=== PATIENT | male | born 1980 | race Caucasian/White ===

== ENCOUNTER 2018-10-05 00:41 | Emergency (ER) | payer MEDICARE, OTHER ==
[~2018-10-05] VITALS: Ht 177.8 cm; Wt 68.0 kg
[2018-10-05] MEDS ORDERED: XARELTO20 MG PO (01:20)
[2018-10-05] MEDS ORDERED: LISI5 PO (01:20)
[2018-10-05] MEDS ORDERED: XARELTO15 MG PO (01:20)
[2018-10-05] MEDS ORDERED: Lisinopril2.5 MG PO (01:21)
[2018-10-05] MEDS ORDERED: FURO20 PO (01:21)
[2018-10-05] MEDS ORDERED: CARV3.125 PO (01:21)
[2018-10-05] MEDS ORDERED: POTA10T PO (01:21)
[2018-10-05] MEDS ORDERED: OXYC10TA19 PO (01:21)
== END 2018-10-05 02:07 | disposition home or self-care (01) ==
LOC: ER 00:41
DX: S00.83XA Contusion of other part of head, initial encounter (principal); W05.0XXA Fall from non-moving wheelchair, initial encounter; Z79.899 Other long term (current) drug therapy; Z79.891 Long term (current) use of opiate analgesic; I48.91 Unspecified atrial fibrillation
CPT/HCPCS: 70450; 99283-25

== ENCOUNTER 2018-12-03 08:36 | Emergency (ER) | payer OTHER ==
[~2018-12-03] VITALS: Ht 177.8 cm; Wt 68.0 kg
[~2018-12-03 08:36] MED LIST: CARV3.125 PO; FURO20 PO; LISI5 PO; Lisinopril2.5 MG PO; OXYC10TA19 PO; POTA10T PO; XARELTO15 MG PO; XARELTO20 MG PO
[2018-12-03] MEDS ORDERED: OXYC10TA19 PO (09:37)
== END 2018-12-03 09:42 | disposition home or self-care (01) ==
LOC: ER 08:36
DX: G89.29 Other chronic pain (principal); M54.9 Dorsalgia, unspecified; I48.91 Unspecified atrial fibrillation; Z76.0 Encounter for issue of repeat prescription
CPT/HCPCS: 99281

== ENCOUNTER 2019-01-19 12:37 | Observation (INO) | payer OTHER ==
[~2019-01-19] VITALS: Ht 177.8 cm; Wt 60.6 kg
[2019-01-19 13:03] LABS: BASOPHILS ABSOLUTE AUTO 0.06 K/mm3 (0.00-0.23); BASOPHILS PERCENT AUTO 1 % (0-2); EOSINOPHILS ABSOLUTE AUTO 0.16 K/mm3 (0.00-0.68); EOSINOPHILS PERCENT AUTO 2 % (0-6); Hematocrit 44.6 % (37.0-53.0); Hemoglobin 15.2 g/dL (13.5-17.5); IMMATURE GRAN ABSOLUTE AUTO 0.02 K/mm3 (0.00-0.10); IMMATURE GRAN PERCENT AUTO 0 % (0-1); LYMPHOCYTES ABSOLUTE AUTO 3.17 K/mm3 (0.84-5.20); LYMPHOCYTES PERCENT AUTO 36 % (21-46); MONOCYTES ABSOLUTE AUTO 0.52 K/mm3 (0.16-1.47); MONOCYTES PERCENT AUTO 6 % (4-13); Mean Corpuscular HGB 31.3 pg (26.0-34.0); Mean Corpuscular HGB Conc 34.1 g/dL (31.5-36.5); Mean Corpuscular Volume 92 fL (80-100); Mean Platelet Volume 12.7 fL (9.1-12.4); NEUTROPHILS PERCENT AUTO 56 % (41-73); Platelet Count 176 K/mm3 (150-400); RDW Coefficient Variation 13.1 % (11.7-14.2); RDW Standard Deviation 44.3 fL (35.1-46.3); Red Blood Cell Count 4.86 M/mm3 (4.30-5.90); White Blood Cell Count 8.83 K/mm3 (4.00-11.30)
[2019-01-19 13:27] LABS: Alanine Aminotransfer (ALT/SGP 47 U/L (12-78); Albumin, Blood 3.9 g/dL (3.4-5.0); Albumin/Globulin Ratio 1.1 (0.8-1.8); Alk Phos 77 U/L (50-136); Anion Gap 6 mmol/L (6-16); Aspartate Aminotrans (AST/SGOT 37 U/L (12-37); Bilirubin, Total 0.9 mg/dL (0.1-1.0); Blood Urea Nitrogen 22 mg/dL (8-24); Bun/Creatinine Ratio 20.6 (12.0-20.0); CO2, Blood 23 mmol/L (21-32); Calcium, Blood 9.3 mg/dL (8.5-10.1); Chloride, Blood 109 mmol/L (98-108); Creatinine, Blood 1.07 mg/dL (0.60-1.20); Globulin, Blood 3.4 g/dL (2.2-4.0); Glomerular Filtration Rate >60 (60-); Glucose, Blood 126 mg/dL (70-99); Potassium, Blood 4.6 mmol/L (3.5-5.5); Sodium, Blood 138 mmol/L (136-145); Total Protein, Blood 7.3 g/dL (6.4-8.2)
[2019-01-19 13:35] LABS: Troponin I 0.495 ng/mL (0.000-0.040)
--- NOTE | 2019-01-19 18:11 | NUR ---
ADMIT: PT ARRIVED TO PCU 6 AT 1635 VIA GURNEY. PT ALERT AND ORIENTED, COMPLAINING OF BACK PAIN. PRN PAIN MEDS GIVEN PER ORDER. PT DENIES ANY CHEST PAIN. ADMIT PAPERWORK COMPLETED. PT ORIENTED TO ROOM, CALL LIGHT AND PLAN OF CARE. CONTINUING TO MONITOR.
[2019-01-20 04:07] LABS: BASOPHILS ABSOLUTE AUTO 0.05 K/mm3 (0.00-0.23); BASOPHILS PERCENT AUTO 1 % (0-2); EOSINOPHILS ABSOLUTE AUTO 0.22 K/mm3 (0.00-0.68); EOSINOPHILS PERCENT AUTO 3 % (0-6); Hematocrit 39.1 % (37.0-53.0); Hemoglobin 13.1 g/dL (13.5-17.5); IMMATURE GRAN ABSOLUTE AUTO 0.01 K/mm3 (0.00-0.10); IMMATURE GRAN PERCENT AUTO 0 % (0-1); LYMPHOCYTES ABSOLUTE AUTO 3.39 K/mm3 (0.84-5.20); LYMPHOCYTES PERCENT AUTO 41 % (21-46); MONOCYTES ABSOLUTE AUTO 0.68 K/mm3 (0.16-1.47); MONOCYTES PERCENT AUTO 8 % (4-13); Mean Corpuscular HGB 30.5 pg (26.0-34.0); Mean Corpuscular HGB Conc 33.5 g/dL (31.5-36.5); Mean Corpuscular Volume 91 fL (80-100); Mean Platelet Volume 12.9 fL (9.1-12.4); NEUTROPHILS ABSOLUTE AUTO 4.03 K/mm3 (1.96-9.15); NEUTROPHILS PERCENT AUTO 48 % (41-73); Platelet Count 153 K/mm3 (150-400); RDW Coefficient Variation 13.3 % (11.7-14.2); RDW Standard Deviation 44.8 fL (35.1-46.3); Red Blood Cell Count 4.29 M/mm3 (4.30-5.90); White Blood Cell Count 8.38 K/mm3 (4.00-11.30)
[2019-01-20 04:29] LABS: Alanine Aminotransfer (ALT/SGP 38 U/L (12-78); Albumin, Blood 3.3 g/dL (3.4-5.0); Albumin/Globulin Ratio 1.2 (0.8-1.8); Alk Phos 68 U/L (50-136); Anion Gap 8 mmol/L (6-16); Aspartate Aminotrans (AST/SGOT 21 U/L (12-37); Bilirubin, Total 0.6 mg/dL (0.1-1.0); Blood Urea Nitrogen 28 mg/dL (8-24); Bun/Creatinine Ratio 22.2 (12.0-20.0); CHOL/HDL RATIO 5.5; CO2, Blood 26 mmol/L (21-32); Chloride, Blood 107 mmol/L (98-108); Cholesterol 192 mg/dL (50-200); Creatinine, Blood 1.26 mg/dL (0.60-1.20); Globulin, Blood 2.8 g/dL (2.2-4.0); Glomerular Filtration Rate >60 (60-); Glucose, Blood 81 mg/dL (70-99); HDL Cholesterol 35 mg/dL (>39); LDL/HDL RATIO 3.8; Low Density Lipoprotein Chol 134 mg/dL (0-110); Potassium, Blood 3.8 mmol/L (3.5-5.5); Sodium, Blood 141 mmol/L (136-145); Total Protein, Blood 6.1 g/dL (6.4-8.2); Triglycerides 113 mg/dL (30-140); Troponin I 0.479 ng/mL (0.000-0.040); Very Low Density Lipoprot Chol 22 mg/dL (6-28)
--- NOTE | 2019-01-20 05:44 | NUR ---
SHIFT SUMMARY PT SLEEPING IN ROOM COMFORTABLY AT THIS TIME. NO ACUTE CHANGES IN STATSU T.O NIGHT. PT SLEPT WELL IN PERIODS. DENIED ANY CP OR SOB T/O NIGHT. RESP EVEN UNLBAORED ON RA W/ SATS >92%. PT BLE ELEVATED T/O NIGHT FOR EDEMA. PT C/O PAIN ONCE AND WAS MEDICATED PER EMAR. DENIED OTHER NEEDS. PT REMAINED ON BEDREST, AND USED URINAL IN BED W/O ASSIST. CALL LIGHT IN REACH. PT CALLS APPROPRIATELY.
--- NOTE | 2019-01-20 07:00 | NUR ---
recvd report from previous shift RN, pt sitting up in bed, a/0 x 4, pleasant/cooperative. call light within reach, bed rails up x 2, bed in lowest position. dr boucher in with pt
--- NOTE | 2019-01-20 08:55 | NUR ---
care management rounded on pt
--- NOTE | 2019-01-20 09:09 | NUR ---
dr bennett rounded on pt
--- NOTE | 2019-01-20 11:25 | NUR ---
Spiritual care visit conducted. Patient is lying in bed and alert. Patient openly shares about his life including his 20 years of being in a wheel chair, his thoughts on druze (Faith/Judaism blend), and his ideas of what inspires him (family, friends and fishing). Patient has an upbeat disposition and is mindful of others. I reinforce helpful attitudes and practices, encourage self-care, explore spiritual beliefs and provide companionship and prayer. Patient responds well and voices appreciation for the visit.
--- NOTE | 2019-01-20 12:45 | NUR ---
provided pt with discharge instructions and referral for cardiac rehab and followup with Dr Sheehan at [facility] for further care per MD orders and pt's preference. peripheral IV removed WNL. pt and his belongins transported to awaiting vehicle via wheelchair
== END 2019-01-20 13:30 | disposition home or self-care (01) ==
LOC: ER 12:37 → PCU 12:38
PROVIDERS: Emergency Medicine; Nurse Practitioner Acute Care; ADMIT Internal Medicine
DX: R07.89 Other chest pain (principal); I11.0 Hypertensive heart disease with heart failure; I50.23 Acute on chronic systolic (congestive) heart failure; R79.89 Other specified abnormal findings of blood chemistry; I21.A9 Other myocardial infarction type; I48.0 Paroxysmal atrial fibrillation; I34.0 Nonrheumatic mitral (valve) insufficiency; I27.20 Pulmonary hypertension, unspecified; R94.31 Abnormal electrocardiogram [ECG] [EKG]; G11.1 Early-onset cerebellar ataxia; Z87.891 Personal history of nicotine dependence; Z79.899 Other long term (current) drug therapy; N28.9 Disorder of kidney and ureter, unspecified
CPT/HCPCS: 36415; 71045; 80053; 80061; 83735; 84484; 85025; 93005; 93010; 99285-25; C8923; J1940; Q9957

== ENCOUNTER 2019-01-30 10:29 | Emergency (ER) | payer OTHER ==
[~2019-01-30] VITALS: Ht 177.8 cm; Wt 68.0 kg
[2019-01-30 11:38] LABS: BASOPHILS ABSOLUTE AUTO 0.07 K/mm3 (0.00-0.23); BASOPHILS PERCENT AUTO 1 % (0-2); EOSINOPHILS ABSOLUTE AUTO 0.12 K/mm3 (0.00-0.68); EOSINOPHILS PERCENT AUTO 1 % (0-6); Hematocrit 44.2 % (37.0-53.0); Hemoglobin 14.9 g/dL (13.5-17.5); IMMATURE GRAN ABSOLUTE AUTO 0.04 K/mm3 (0.00-0.10); IMMATURE GRAN PERCENT AUTO 0 % (0-1); LYMPHOCYTES PERCENT AUTO 23 % (21-46); MONOCYTES ABSOLUTE AUTO 0.74 K/mm3 (0.16-1.47); MONOCYTES PERCENT AUTO 7 % (4-13); Mean Corpuscular HGB 30.8 pg (26.0-34.0); Mean Corpuscular HGB Conc 33.7 g/dL (31.5-36.5); Mean Corpuscular Volume 91 fL (80-100); Mean Platelet Volume 12.9 fL (9.1-12.4); NEUTROPHILS ABSOLUTE AUTO 7.27 K/mm3 (1.96-9.15); NEUTROPHILS PERCENT AUTO 68 % (41-73); Platelet Count 175 K/mm3 (150-400); RDW Coefficient Variation 13.2 % (11.7-14.2); RDW Standard Deviation 44.3 fL (35.1-46.3); Red Blood Cell Count 4.84 M/mm3 (4.30-5.90); White Blood Cell Count 10.74 K/mm3 (4.00-11.30)
[2019-01-30 11:54] LABS: Alanine Aminotransfer (ALT/SGP 105 U/L (12-78); Albumin/Globulin Ratio 1.1 (0.8-1.8); Alk Phos 112 U/L (50-136); Anion Gap 6 mmol/L (6-16); Aspartate Aminotrans (AST/SGOT 60 U/L (12-37); Bilirubin, Total 0.9 mg/dL (0.1-1.0); Blood Urea Nitrogen 23 mg/dL (8-24); Bun/Creatinine Ratio 18.1 (12.0-20.0); CO2, Blood 26 mmol/L (21-32); Calcium, Blood 9.4 mg/dL (8.5-10.1); Chloride, Blood 106 mmol/L (98-108); Creatinine, Blood 1.27 mg/dL (0.60-1.20); Globulin, Blood 3.6 g/dL (2.2-4.0); Glomerular Filtration Rate >60 (60-); Glucose, Blood 142 mg/dL (70-99); Potassium, Blood 4.8 mmol/L (3.5-5.5); Sodium, Blood 138 mmol/L (136-145); Total Protein, Blood 7.6 g/dL (6.4-8.2)
== END 2019-01-30 13:45 | disposition home or self-care (01) ==
LOC: ER 10:29
PROVIDERS: Emergency Medicine
DX: I11.0 Hypertensive heart disease with heart failure (principal); I50.22 Chronic systolic (congestive) heart failure; G89.29 Other chronic pain; M54.9 Dorsalgia, unspecified; I48.91 Unspecified atrial fibrillation; Z79.899 Other long term (current) drug therapy
CPT/HCPCS: 36415; 71046; 80053; 83880; 85025; 93005; 93010; 99285-25

== ENCOUNTER 2019-02-02 19:31 | Emergency (ER) | payer OTHER ==
[~2019-02-02] VITALS: Ht 177.8 cm; Wt 68.0 kg
[2019-02-02 20:17] LABS: Source, Urine Catheter
[2019-02-02 20:20] LABS: Bilirubin, Urine Neg (Neg); Blood, Urine Neg (Neg); Glucose Qualitative, Urine Neg (Neg); Ketones, Urine Neg (Neg); Leukocyte Esterase, Urine Neg (Neg); Nitrite, Urine Neg (Neg); Protein, Urine Neg (Neg); Urobilinogen, Urine NORM (Normal)
[2019-02-02 20:27] LABS: Appearance, Urine Clear (Clear); Color, Urine Yellow (P-Yellow)
== END 2019-02-02 21:35 | disposition home or self-care (01) ==
LOC: ER 19:31
PROVIDERS: Emergency Medicine
DX: R33.9 Retention of urine, unspecified (principal); R60.0 Localized edema; I11.0 Hypertensive heart disease with heart failure; I50.9 Heart failure, unspecified; Z79.899 Other long term (current) drug therapy; Z79.01 Long term (current) use of anticoagulants; Z79.891 Long term (current) use of opiate analgesic
CPT/HCPCS: 51702; 51798; 81003; 99283

== ENCOUNTER 2019-02-04 15:36 | Emergency (ER) | payer OTHER ==
[~2019-02-04] VITALS: Ht 177.8 cm; Wt 68.0 kg
== END 2019-02-04 16:03 | disposition home or self-care (01) ==
LOC: ER 15:36
DX: Z46.6 Encounter for fitting and adjustment of urinary device (principal); I11.0 Hypertensive heart disease with heart failure; I50.9 Heart failure, unspecified; I48.91 Unspecified atrial fibrillation; Z79.899 Other long term (current) drug therapy; Z79.01 Long term (current) use of anticoagulants
CPT/HCPCS: 99282